=== PATIENT | female | born 1985 | race American Indian/Alaskan Native ===

== ENCOUNTER 2019-10-22 10:48 | Emergency (ER) | payer SELFPAY ==
[2019-10-22 11:42] VITALS: BP 158/77
--- NOTE | 2019-10-22 11:47 | Emergency Department Report ---
Blank Doc - Documentation Documentation: 34-year-old female that presents with abdominal pain w/ n/v. This initial assessment/diagnostic orders/clinical plan/treatment(s) is/are subject to change based on patient's health status, clinical progression and re- assessment by fellow clinical providers in the ED. Further treatment and workup at subsequent clinical providers discretion. Patient/guardians urged not to elope from the ED as their condition may be serious if not clinically assessed and managed. Initial orders include: 1- Patient sent to [facility] for further evaluation and treatment 2- labs 3- UA
[2019-10-22 12:26] LABS: Basophils # (Auto) 0.1 K/mm3 (0.0-0.1); Basophils % (Auto) 0.5 % (0.0-1.8); Eosinophils # (Auto) 0.1 K/mm3 (0.0-0.4); Eosinophils % (Auto) 1.2 % (0.0-4.3); Hematocrit 41.8 % (30.3-42.9); Hemoglobin 13.7 gm/dl (10.1-14.3); Lymphocytes # (Auto) 1.9 K/mm3 (1.2-5.4); Lymphocytes % (Auto) 17.4 % (13.4-35.0); Mean Corpuscular HGB Conc 33 % (30-34); Mean Corpuscular Volume 94 fl (79-97); Monocytes # (Auto) 0.4 K/mm3 (0.0-0.8); Monocytes % (Auto) 3.6 % (0.0-7.3); Platelet Count 364 K/mm3 (140-440); Red Blood Count 4.47 M/mm3 (3.65-5.03); Red Cell Distribution Width 13.2 % (13.2-15.2)
[2019-10-22 12:37] LABS: Alanine Aminotransferase 12 units/L (7-56); Albumin 4.2 g/dL (3.9-5); BUN/Creatinine Ratio 11; Blood Urea Nitrogen 9 mg/dL (7-17); Calcium 9.2 mg/dL (8.4-10.2); Hemolysis Index 13
[2019-10-22] MEDS ORDERED: METOCLOPRAMIDE 10 MG/2 ML INJ IV ONE (14:56)
[2019-10-22] MEDS ORDERED: diphenhydrAMINE 50 MG/ML VIAL IV ONE (14:56)
[2019-10-22] MEDS ORDERED: FAMOTIDINE 20 MG/2 ML INJ IV ONE (14:56)
[2019-10-22] MEDS ORDERED: SODIUM CHLORIDE 0.9% 1000 ML 1,000 ML IV ONE (14:57)
--- NOTE | 2019-10-22 15:27 | Emergency Department Report ---
Vomiting/Diarrhea - HPI Chief Complaint: Abdominal Pain Stated Complaint: REFLUX Time Seen by Provider: 10/22/19 11:46 Duration: 2 Days Severity: moderate Nausea/Vomiting Severity: Mild Diarrhea Severity: None Pain Location: LUQ Pain Severity: Mild Symptoms: Yes Able to Tolerate Fluids, No Watery Diarrhea, No Bloody diarrhea, No Fever, No Recent Unusual Foods, No Recent Untreated Water, No Recent use of Antibiotics, No Family w/ Similar Symptoms, No Contacts w/ Similar Symptoms, No Rash, No Hematuria, No Recent URI Symptoms ED Review of Systems ROS: Stated complaint: REFLUX Other details as noted in HPI Comment: All other systems reviewed and negative ED Past Medical Hx - Past Medical History Additional medical history: GERD - Surgical History Past Surgical History?: No - Social History Smoking Status: Never Smoker Substance Use Type: Marijuana - Medications Home Medications: Home Medications Medication Instructions Recorded Confirmed Last Taken Type Dicyclomine [Bentyl] 10 mg PO TID #20 capsule 10/22/19 Unknown Rx Famotidine [Pepcid] 20 mg PO BID #20 tablet 10/22/19 Unknown Rx Ondansetron [Zofran ODT TAB] 8 mg PO Q12HR #20 tab.rapdis 10/22/19 Unknown Rx Vomiting Diarrhea Exam - Exam General: Vital signs noted. No distress. Alert and acting appropriately. HEENT: Yes Moist Mucous Membranes, No Pharyngeal Erythema, No Pharyngeal Exudates, No Rhinorrhea, No Conjuctival Injection, No Frontal Tenderness, No Maxillary Tenderness Neck: No Adenopathy, No Rigidity Lungs: Yes Clear Lung Sounds, Yes Good Air Exchange, No Wheezes, No Stridor, No Cough, No Nasal Flaring, No Retractions, No Use of Accessory Muscles Heart exam: Regular: Yes, Murmur: No, Tachycardia: No Abdomen: Tenderness: No, Peritoneal Signs: No, Distention: No, Hyperactive Bowel sounds: No Skin exam: Rash: No, Edema: No, Normal turgor: Yes Neurologic: Alert and oriented, no deficits. Musculoskeletal: Unremarkable. ED Course Vital Signs 10/22/19 10/22/19 10:52 11:41 Temperature 97.5 F L Pulse Rate 74 Respiratory 20 Rate Blood Pressure 150/117 Blood Pressure 158/77 [Left] O2 Sat by Pulse 98 Oximetry ED Medical Decision Making - Lab Data Result diagrams: 10/22/19 12:00 10/22/19 12:00 Laboratory Last Values WBC 10.8 K/mm3 (4.5-11.0) 10/22/19 12:00 RBC 4.47 M/mm3 (3.65-5.03) 10/22/19 12:00 Hgb 13.7 gm/dl (10.1-14.3) 10/22/19 12:00 Hct 41.8 % (30.3-42.9) 10/22/19 12:00 MCV 94 fl (79-97) 10/22/19 12:00 MCH 31 pg (28-32) 10/22/19 12:00 MCHC 33 % (30-34) 10/22/19 12:00 RDW 13.2 % (13.2-15.2) 10/22/19 12:00 Plt Count 364 K/mm3 (140-440) 10/22/19 12:00 Lymph % (Auto) 17.4 % (13.4-35.0) 10/22/19 12:00 [place] % (Auto) 3.6 % (0.0-7.3) 10/22/19 12:00 Eos % (Auto) 1.2 % (0.0-4.3) 10/22/19 12:00 Baso % (Auto) 0.5 % (0.0-1.8) 10/22/19 12:00 Lymph # 1.9 K/mm3 (1.2-5.4) 10/22/19 12:00 [place] # 0.4 K/mm3 (0.0-0.8) 10/22/19 12:00 Eos # 0.1 K/mm3 (0.0-0.4) 10/22/19 12:00 Baso # 0.1 K/mm3 (0.0-0.1) 10/22/19 12:00 Seg Neutrophils % 77.3 % (40.0-70.0) H 10/22/19 12:00 Seg Neutrophils # 8.3 K/mm3 (1.8-7.7) H 10/22/19 12:00 Sodium 136 mmol/L (137-145) L 10/22/19 12:00 Potassium 3.7 mmol/L (3.6-5.0) 10/22/19 12:00 Chloride 101.7 mmol/L (98-107) 10/22/19 12:00 Carbon Dioxide 22 mmol/L (22-30) 10/22/19 12:00 Anion Gap 16 mmol/L 10/22/19 12:00 BUN 9 mg/dL (7-17) 10/22/19 12:00 Creatinine 0.8 mg/dL (0.7-1.2) 10/22/19 12:00 Estimated GFR > 60 ml/min 10/22/19 12:00 BUN/Creatinine Ratio 11 % 10/22/19 12:00 Glucose 185 mg/dL (65-100) H 10/22/19 12:00 Calcium 9.2 mg/dL (8.4-10.2) 10/22/19 12:00 Total Bilirubin 0.20 mg/dL (0.1-1.2) 10/22/19 12:00 AST 19 units/L (5-40) 10/22/19 12:00 ALT 12 units/L (7-56) 10/22/19 12:00 Alkaline Phosphatase 48 units/L (35-129) 10/22/19 12:00 Total Protein 7.3 g/dL (6.3-8.2) 10/22/19 12:00 Albumin 4.2 g/dL (3.9-5) 10/22/19 12:00 Albumin/Globulin Ratio 1.4 % 10/22/19 12:00 Lipase 11 units/L (13-60) L 10/22/19 12:00 HCG, Qual Negative (Negative) 10/22/19 12:00 - EKG Data EKG shows normal: sinus rhythm Rate: normal - EKG Data Interpretation: normal EKG - Medical Decision Making This is a 34-year-old female with a history of acid reflux who presented with vomiting. Patient received IV fluids in the ED in ED as well as anti-medic. Vomiting resolved in the ED. Discussed with patient to take medication and follow-up with the GI doctor. GI referral was given to patient Vital signs are normal patient is in no acute distress Critical care attestation.: If time is entered above; I have spent that time in minutes in the direct care of this critically ill patient, excluding procedure time. ED Disposition Clinical Impression: Gastritis, Gastritis, bile acid reflux Disposition: - TO HOME OR SELFCARE Is pt being admited?: No Does the pt Need Aspirin: No Condition: Stable Instructions: Diet for Ulcers and Gastritis (ED), Gastroesophageal Reflux Disease (ED), Abdominal Pain (ED) Additional Instructions: Make sure to follow up with the primary care physician as discussed. Take all your medications as you've been prescribed. If you have any worsening symptoms or develop new symptoms please return to ED immediately. Prescriptions: Dicyclomine [Bentyl] 10 mg PO TID #20 capsule Famotidine [Pepcid] 20 mg PO BID #20 tablet Ondansetron [Zofran ODT TAB] 8 mg PO Q12HR #20 tab.rapdis Referrals: [facility] [Provider Group] - 3-5 Days [facility] [Provider Group] - 3-5 Days [facility] [Outside] - 3-5 Days [facility] [Outside] - 3-5 Days Forms: Accompanied Note, Work/School Release Form(ED) Time of Disposition: 16:34
[2019-10-22 16:59] LABS: Bacteria,Urine 1+ /HPF (Negative); Bilirubin,Urine NEG (Negative); Blood,Urine NEG (Negative); Color,Urine Yellow (Yellow); Mucus,Urine 1+ /HPF; Protein,Urine <15 mg/dL mg/dL (Negative); Urobilinogen,Urine < 2.0 mg/dL (<2.0)
[2019-10-22] MEDS ORDERED: KETOROLAC 30 MG/1 ML INJ IV ONE (17:12)
[2019-10-22] MEDS ORDERED: ONDANSETRON 4 MG/2 ML INJ IV ONE (17:12)
== END 2019-10-22 17:49 | disposition home or self-care (01) ==
LOC: ED 10:48
DX: K29.60 Other gastritis without bleeding (principal); K21.9 Gastro-esophageal reflux disease without esophagitis; F12.10 Cannabis abuse, uncomplicated
CPT/HCPCS: 36415; 80053; 81001; 83690; 84703; 85025; 93005; 96361; 96374; 96375; 99283; J1200; J1885; J2405; J2765; J7030

== ENCOUNTER 2019-10-23 11:04 | Emergency (ER) | payer SELFPAY ==
--- NOTE | 2019-10-23 12:56 | Event Note ---
ED Screening Note Date of service: 10/23/19 Time: 12:54 ED Screening Note: Patient complains of continued nausea and vomiting x 2 days. Patient was seen here yesterday 10/22/2019 for the same-symptoms did resolve in the ED, however returned when she got home. Patient states Zofran is not helping. Patient states she did smoke marijuana the day before her symptoms started Patient also reports taking multiple showers helps with her symptoms This initial assessment/diagnostic orders/clinical plan/treatment(s) is/are subject to change based on patients health status, clinical progression and re- assessment by fellow clinical providers in the ED. Further treatment and workup at subsequent clinical providers discretion. Patient/guardian urged not to elope from the ED as their condition may be serious if not clinically assessed and managed. Initial orders include: Labs Capsaicin
[2019-10-23] MEDS ORDERED: SODIUM CHLORIDE 0.9% 1000 ML 1,000 ML IV ONE (13:13)
[2019-10-23] MEDS ORDERED: METOCLOPRAMIDE 10 MG/2 ML INJ IV ONE (13:13)
[2019-10-23] MEDS ORDERED: FAMOTIDINE 20 MG/2 ML INJ IV ONE (13:14)
[2019-10-23] MEDS ORDERED: DICYCLOMINE 20 MG TAB PO ONE (13:14)
[2019-10-23 13:41] LABS: Basophils # (Auto) 0.1 K/mm3 (0.0-0.1); Basophils % (Auto) 0.9 % (0.0-1.8); Eosinophils % (Auto) 0.1 % (0.0-4.3); Hematocrit 43.5 % (30.3-42.9); Hemoglobin 14.9 gm/dl (10.1-14.3); Lymphocytes % (Auto) 10.9 % (13.4-35.0); Mean Corpuscular HGB Conc 34 % (30-34); Mean Corpuscular Volume 94 fl (79-97); Monocytes # (Auto) 0.5 K/mm3 (0.0-0.8); Monocytes % (Auto) 5.9 % (0.0-7.3); Platelet Count 386 K/mm3 (140-440); Red Blood Count 4.63 M/mm3 (3.65-5.03); Red Cell Distribution Width 13.2 % (13.2-15.2)
[2019-10-23] MEDS ORDERED: CAPSAICIN 0.075% CREAM 60 GM TP SCH (14:00)
--- NOTE | 2019-10-23 14:10 | Emergency Department Report ---
ED Abdominal Pain HPI - General Chief Complaint: Abdominal Pain Stated Complaint: N/V,WEAKNESS Time Seen by Provider: 10/23/19 13:11 Source: patient Mode of arrival: Wheelchair Limitations: No Limitations - History of Present Illness Initial Comments: This is a 34-year-old male nontoxic, well nourished in appearance, no acute signs of distress presents to the ED with c/o of nausea and vomiting and abdominal pain. Patient describes vomiting as yellow gastric acid. Patient describes abdominal pain as cramping and aching with level of 8/10 in the ep igastric area. Patient denies chest pain, short of breath, fever, hemoptysis, blood in stool, chills, headache, stiff neck, numbness or tingling. Patient denies any diarrhea or constipation. Denies any blood in stool. Patient denies any recent travels. Patient stated that Zofran is not helping the patient. Patient stated that she smokes marijuana daily. MD Complaint: abdominal pain Location: epigastric Radiation: none Migration to: no migration Severity: mild Severity scale (0 -10): 8 Quality: cramping, aching Consistency: intermittent Improves With: nothing Worsens With: nothing Associated Symptoms: nausea, vomiting. denies: diarrhea, fever, chills, constipation, dysuria, hematemesis, hematochezia, melena, hematuria, anorexia, syncope - Related Data Previous Rx's Medication Instructions Recorded Last Taken Type Dicyclomine [Bentyl] 10 mg PO TID #20 capsule 10/22/19 Unknown Rx Famotidine [Pepcid] 20 mg PO BID #20 tablet 10/22/19 Unknown Rx Ondansetron [Zofran ODT TAB] 8 mg PO Q12HR #20 tab.rapdis 10/22/19 Unknown Rx Metoclopramide [Reglan] 10 mg PO Q12H PRN #12 tab 10/23/19 Unknown Rx cephALEXin [Keflex] 500 mg PO Q8HR #21 cap 10/23/19 Unknown Rx Allergies Allergy/AdvReac Type Severity Reaction Status Date / Time No Known Allergies Allergy Unverified 10/22/19 10:49 ED Review of Systems ROS: Stated complaint: N/V,WEAKNESS Other details as noted in HPI Constitutional: denies: chills, fever Eyes: denies: eye pain, eye discharge, vision change ENT: denies: ear pain, throat pain Respiratory: denies: cough, shortness of breath, wheezing Cardiovascular: denies: chest pain, palpitations Endocrine: no symptoms reported Gastrointestinal: abdominal pain, nausea, vomiting. denies: diarrhea Genitourinary: denies: urgency, dysuria, discharge Musculoskeletal: denies: back pain, joint swelling, arthralgia Skin: denies: rash, lesions Neurological: denies: headache, weakness, paresthesias Psychiatric: denies: anxiety, depression Hematological/Lymphatic: denies: easy bleeding, easy bruising ED Past Medical Hx - Past Medical History Previous Medical History?: Yes Hx GERD: Yes Additional medical history: GERD - Surgical History Past Surgical History?: No - Social History Smoking Status: Never Smoker Substance Use Type: Marijuana - Medications Home Medications: Home Medications Medication Instructions Recorded Confirmed Last Taken Type Dicyclomine [Bentyl] 10 mg PO TID #20 capsule 10/22/19 Unknown Rx Famotidine [Pepcid] 20 mg PO BID #20 tablet 10/22/19 Unknown Rx Ondansetron [Zofran ODT TAB] 8 mg PO Q12HR #20 tab.rapdis 10/22/19 Unknown Rx Metoclopramide [Reglan] 10 mg PO Q12H PRN #12 tab 10/23/19 Unknown Rx cephALEXin [Keflex] 500 mg PO Q8HR #21 cap 10/23/19 Unknown Rx ED Physical Exam - General Limitations: No Limitations General appearance: alert, in no apparent distress - Head Head exam: Present: atraumatic, normocephalic - Eye Eye exam: Present: normal appearance - Neck Neck exam: Present: normal inspection, full ROM. Absent: tenderness, meningismus, lymphadenopathy - Respiratory Respiratory exam: Present: normal lung sounds bilaterally. Absent: respiratory distress, wheezes, rales, rhonchi, stridor, chest wall tenderness, accessory muscle use, decreased breath sounds, prolonged expiratory - Cardiovascular Cardiovascular Exam: Present: regular rate, normal rhythm, normal heart sounds. Absent: bradycardia, tachycardia, irregular rhythm, systolic murmur, diastolic murmur, rubs, gallop - GI/Abdominal GI/Abdominal exam: Present: soft, tenderness (epigastric), normal bowel sounds. Absent: distended, guarding, rebound, rigid, diminished bowel sounds - Extremities Exam Extremities exam: Present: normal inspection, full ROM - Back Exam Back exam: Present: normal inspection, full ROM. Absent: tenderness, CVA tenderness (R), CVA tenderness (L), muscle spasm, paraspinal tenderness, vertebral tenderness, rash noted - Neurological Exam Neurological exam: Present: alert, oriented X3, normal gait - Psychiatric Psychiatric exam: Present: normal affect, normal mood - Skin Skin exam: Present: warm, dry, intact, normal color. Absent: rash ED Course Vital Signs 10/23/19 10/23/19 12:51 15:03 Temperature 97.7 F Pulse Rate 72 Respiratory 18 18 Rate Blood Pressure 151/83 O2 Sat by Pulse 100 Oximetry - Reevaluation(s) Reevaluation #1: 10/23/19 14:10 Patient is speaking in full sentences with no signs of distress noted. ED Medical Decision Making - Lab Data Result diagrams: 10/23/19 13:30 10/23/19 13:30 Lab Results 10/23/19 10/23/19 10/23/19 Range/Units 13:30 13:30 Unknown WBC 9.1 (4.5-11.0) K/mm3 RBC 4.63 (3.65-5.03) M/mm3 Hgb 14.9 H (10.1-14.3) gm/dl Hct 43.5 H (30.3-42.9) % MCV 94 (79-97) fl MCH 32 (28-32) pg MCHC 34 (30-34) % RDW 13.2 (13.2-15.2) % Plt Count 386 (140-440) K/mm3 Lymph % (Auto) 10.9 L (13.4-35.0) % [place] % (Auto) 5.9 (0.0-7.3) % Eos % (Auto) 0.1 (0.0-4.3) % Baso % (Auto) 0.9 (0.0-1.8) % Lymph # 1.0 L (1.2-5.4) K/mm3 [place] # 0.5 (0.0-0.8) K/mm3 Eos # 0.0 (0.0-0.4) K/mm3 Baso # 0.1 (0.0-0.1) K/mm3 Seg Neutrophils % 82.2 H (40.0-70.0) % Seg Neutrophils # 7.5 (1.8-7.7) K/mm3 Sodium 135 L (137-145) mmol/L Potassium 4.0 (3.6-5.0) mmol/L Chloride 97.4 L (98-107) mmol/L Carbon Dioxide 23 (22-30) mmol/L Anion Gap 19 mmol/L BUN 11 (7-17) mg/dL Creatinine 0.8 (0.7-1.2) mg/dL Estimated GFR > 60 ml/min BUN/Creatinine Ratio 14 % Glucose 114 H (65-100) mg/dL Calcium 10.4 H (8.4-10.2) mg/dL Total Bilirubin 0.40 (0.1-1.2) mg/dL AST 27 (5-40) units/L ALT 15 (7-56) units/L Alkaline Phosphatase 55 (35-129) units/L Total Protein 9.0 H D (6.3-8.2) g/dL Albumin 5.1 H (3.9-5) g/dL Albumin/Globulin Ratio 1.3 % Lipase 11 L (13-60) units/L Urine Color [place]a (Yellow) Urine Turbidity Cloudy (Clear) Urine pH 6.0 (5.0-7.0) Ur Specific [place] 1.026 (1.003-1.030) Urine Protein 100 mg/dl (Negative) mg/dL Urine Glucose (UA) Neg (Negative) mg/dL Urine Ketones 20 (Negative) mg/dL Urine Blood Neg (Negative) Urine Nitrite Neg (Negative) Urine Bilirubin Neg (Negative) Urine Urobilinogen < 2.0 (<2.0) mg/dL Ur Leukocyte Esterase Lg (Negative) Urine WBC (Auto) 52.0 H (0.0-6.0) /HPF Urine RBC (Auto) 12.0 (0.0-6.0) /HPF U Epithel Cells (Auto) 30.0 H (0-13.0) /HPF Urine Mucus 3+ /HPF - Radiology Data Referring Physician: ERIKA ARTHUR Patient Name: NORMA JIMENEZ Date of : 1985 Sex: Female Report Date: 2019-10-23 Report Status: Finalized [facility] [address] [id number] Ultrasound Report Signed Patient: NORMA JIMENEZ MR#: [id number] : 1985 Acct:[id number] Age/Sex: 34 / F ADM Date: 10/23/19 Loc: ED Attending Dr: Ordering Physician: ERIKA ARTHUR NP Date of Service: 10/23/19 Procedure(s): US abdomen complete Accession Number(s): [id number] cc: ERIKA ARTHUR NP ULTRASOUND ABDOMEN, COMPLETE INDICATION: ABD PAIN. COMPARISON: No relevant prior imaging study available. FINDINGS: Pancreas: No significant abnormality. Abdominal Aorta: No significant abnormality. IVC: No significant abnormality. Liver: The liver measures 13.1 cm in length. No significant abnormality. Normal hepatopedal blood flow in the main portal vein. Gallbladder: No significant abnormality. Bile ducts: No significant abnormality. Common bile duct measures 4 mm. Kidneys: Right: 10.8 cm in length. No significant abnormality. Left: 10.1 cm in length. No significant abnormality. Spleen: No significant abnormality. Free fluid: None. Additional Findings: None. IMPRESSION: 1. No sonographic abnormality of the abdomen. Signer Name: Wilfredo Christopher MD Signed: 10/23/2019 6:02 PM Workstation Name: [id number] Transcribed By: JW Dictated By: Wilfredo Christopher MD Electronically Authenticated By: Wilfredo Christopher MD Signed Date/Time: 10/23/191801 DD/ 00 TD/TT: Referring Physician: ERIKA ARTHUR Patient Name: NORMA JIMENEZ Date of : 1985 Sex: Female Report Date: 2019-10-23 Report Status: Finalized [facility] [address] [place] [address] XRay Report Signed Patient: NORMA JIMENEZ MR#: [id number] : 1985 Acct:[id number] Age/Sex: 34 / F ADM Date: 10/23/19 Loc: ED Attending Dr: Ordering Physician: ERIKA ARTHUR NP Date of Service: 10/23/19 Procedure(s): XR abd series w cxr 1V Accession Number(s): [id number] cc: ERIKA ARTHUR NP Fluoro Time In Minutes: ABDOMINAL SERIES WITH CHEST X-RAY ONE VIEW HISTORY: Nausea and vomiting COMPARISON: None. FINDINGS: Single view of the chest is within normal limits. Heart and mediastinal structures are unremarkable. The lungs are clear. Supine and upright views the abdomen demonstrate a nonspecific bowel gas pattern. No evidence for dilated bowel, large air-fluid levels or free air. No pathologic calcifications are detected. IMPRESSION: Unremarkable exam. Signer Name: Soren Whelan Jr, MD Signed: 10/23/2019 2:10 PM Workstation Name: [id number] Transcribed By: TTR Dictated By: SOREN WHELAN JR, MD Electronically Authenticated By: SOREN WHELAN JR, MD Signed Date/Time: 10/23/19 141 DD/ 08 TD/TT: - Medical Decision Making This is a 34-year-old female that presents with marijuana induced abdominal pain with n/v. Patient is stable and was examined by me. Negative signs of symptoms of appendicitis. Labs obtained. UA obtained. US/CXR of abdomen obtained and dictated by the radiologist. Patient is notified of the report with no questions noted by the patient. Vital signs are stable prior to discharge. Patient received medical treatment in the ED which patient stated symptoms has resovled and subsided. Was instructed note to operate any machinery due to possible drowsiness and stated someone will drive the patient home. A by mouth challenge has been obtained and patient tolerated well with no nausea vomiting. Patient was notified of strict precatuions of appendictis symptoms and to return to the ED if symptoms occurs as soon as possible. Patient was also instructed to Follow-up with a primary care doctor in 3-5 days or if symptoms worsen and continue return to emergency room as soon as possible. At time of discharge, the patient does not seem toxic or ill in appearance. No acute signs of distress noted. Patient agrees to discharge treatment plan of care. No further questions noted by the patient. Critical care attestation.: If time is entered above; I have spent that time in minutes in the direct care of this critically ill patient, excluding procedure time. ED Disposition Clinical Impression: Cannabinoid hyperemesis syndrome UTI (urinary tract infection) Qualifiers: Urinary tract infection type: acute cystitis Hematuria presence: without hematuria Qualified Code(s): N30.00 - Acute cystitis without hematuria Disposition: TO HOME OR SELFCARE Is pt being admited?: No Does the pt Need Aspirin: No Condition: Stable Instructions: Abdominal Pain (ED), Acute Nausea and Vomiting (ED), Urinary Tract Infection in Women (ED) Additional Instructions: Follow-up with a primary care and cafeteria aide doctor in 3-5 days or if symptoms worsen and continue return to emergency room as soon as possible. Prescriptions: cephALEXin [Keflex] 500 mg PO Q8HR #21 cap Metoclopramide [Reglan] 10 mg PO Q12H PRN #12 tab PRN Reason: Nausea Referrals: PRIMARY MD MITA [Primary Care Provider] - 3-5 Days JEZ CLINTON MD [Staff Physician] - 3-5 Days [facility] [Provider Group] - 3-5 Days Forms: Work/School Release Form(ED)
[2019-10-23 14:13] LABS: Alanine Aminotransferase 15 units/L (7-56); Albumin 5.1 g/dL (3.9-5); BUN/Creatinine Ratio 14; Blood Urea Nitrogen 11 mg/dL (7-17); Calcium 10.4 mg/dL (8.4-10.2)
--- NOTE | 2019-10-23 14:14 | XRay Report ---
ABDOMINAL SERIES WITH CHEST X-RAY ONE VIEW HISTORY: Nausea and vomiting COMPARISON: None. FINDINGS: Single view of the chest is within normal limits. Heart and mediastinal structures are unremarkable. The lungs are clear. Supine and upright views the abdomen demonstrate a nonspecific bowel gas pattern. No evidence for dil ated bowel, large air-fluid levels or free air. No pathologic calcifications are detected. IMPRESSION: Unremarkable exam. Signer Name: Soren Whelan Jr, MD Signed: 10/23/2019 2:10 PM Workstation Name: [id number]
[2019-10-23] MEDS ORDERED: MORPHINE 4 MG/1 ML INJ IV ONE (14:51)
[2019-10-23 15:01] LABS: Bilirubin,Urine NEG (Negative); Blood,Urine NEG (Negative); Color,Urine Amber (Yellow); Mucus,Urine 3+ /HPF; Urobilinogen,Urine < 2.0 mg/dL (<2.0)
--- NOTE | 2019-10-23 18:06 | Ultrasound Report ---
ULTRASOUND ABDOMEN, COMPLETE INDICATION: ABD PAIN. COMPARISON: No relevant prior imaging study available. FINDINGS: Pancreas: No significant abnormality. Abdominal Aorta: No significant abnormality. IVC: No significant abnormality. Liver: The liver measures 13.1 cm in length. No significant abnormality. Normal hepatopedal blood fl ow in the main portal vein. Gallbladder: No significant abnormality. Bile ducts: No significant abnormality. Common bile duct measures 4 mm. Kidneys: Right: 10.8 cm in length. No significant abnormality. Left: 10.1 cm in length. No signif icant abnormality. Spleen: No significant abnormality. Free fluid: None. Additional Findings: None. IMPRESSION: 1. No sonographic abnormality of the abdomen. Signer Name: Wilfredo Christopher MD Signed: 10/23/2019 6:02 PM Workstation Name: [id number]
[2019-10-23 18:59] VITALS: BP 146/80
== END 2019-10-23 18:58 | disposition home or self-care (01) ==
LOC: ED 11:04
DX: N39.0 Urinary tract infection, site not specified (principal); R11.2 Nausea with vomiting, unspecified; K21.9 Gastro-esophageal reflux disease without esophagitis; F12.90 Cannabis use, unspecified, uncomplicated; Z79.899 Other long term (current) drug therapy
CPT/HCPCS: 36415; 74022; 76700; 80053; 81001; 83690; 85025; 87086; 96374; 96375; 99285; J2270; J2765; J7030